=== PATIENT | female | born 1930 | race Hispanic/Latino ===

== ENCOUNTER 2018-08-01 10:02 | Outpatient (CLI) | payer MEDICARE, OTHER | END 2018-08-01 10:03 | disposition home or self-care (01) | LOC: C.MAMMO 10:03 | DX: C50.911 Malignant neoplasm of unspecified site of right female breast (principal) ==

== ENCOUNTER 2018-08-13 10:02 | Outpatient (CLI) | payer MEDICARE, OTHER | END 2018-08-13 10:03 | disposition home or self-care (01) | LOC: C.USIC 10:02 | DX: C50.911 Malignant neoplasm of unspecified site of right female breast (principal) ==